=== PATIENT | female | born 1975 | race Caucasian/White ===

== ENCOUNTER 2021-08-12 08:58 | Outpatient (REF) | payer OTHER, SELFPAY ==
[2021-08-12 11:34] LABS: Alanine Aminotransferase 17 U/L (0-31); Alkaline Phosphatase 56 U/L (39-117); Anion Gap 10 (12-20); Aspartate Amino Transferase 16 U/L (5-31); Bilirubin Total 0.3 mg/dL (0.0-1.0); Blood Urea Nitrogen 18 mg/dL (9-16); Calcium 9.2 mg/dL (8.4-10.2); Carbon Dioxide 24 mmol/L (22-29); Chloride 108 mmol/L (96-108); Cholesterol 225 mg/dL; Estimated Glomerular Filt Rate > 60; Glucose Fasting 111 mg/dL (60-99); HDL Cholesterol 77 mg/dL; LDL Cholesterol Calculated 138 mg/dl; Potassium 4.2 mmol/L (3.3-5.1); Sodium 138 mmol/L (135-145); Total Protein 7.4 g/dL (6.5-8.0); Triglycerides 53 mg/dL
[2021-08-17 05:06] LABS: Vitamin D 25-OH, D2 <4 ng/mL; Vitamin D 25-OH, D3 39 ng/mL; Vitamin D 25-OH, Total 39 ng/mL (30-100)
== END 2021-08-12 08:59 | disposition home or self-care (01) ==
LOC: HO.HMGCLDS 08:58
PROVIDERS: PCP Internal Medicine; Visit Provider Internal Medicine
DX: Z00.00 Encounter for general adult medical examination without abnormal findings (principal); E55.9 Vitamin D deficiency, unspecified
CPT/HCPCS: 36415; 80053; 80061; 82306

== ENCOUNTER 2021-09-14 14:00 | Outpatient (RCR) | payer OTHER, SELFPAY ==
[2021-09-12 13:49] VITALS: BP 124/82; PULSE 84; O2SAT 94
--- NOTE | 2021-09-12 15:56 | MHC.PT.EP ---
[facility] [place] Office [place] Office [place] Office [address] Shannen Fitzpatrick [address] [phone] F: [phone] F: [phone] F: [phone] F: [phone] Physical Therapy Plan of Care Date of Evaluation: Date of Surgery: Diagnosis: This is a 45 yo female presenting to skilled PT with a script for dizziness and giddiness. Assessment: This is a 45 yo female presenting to skilled PT with a script for dizziness and giddiness. Patient has a history of dizziness starting last year when she had ear fullness and symptoms. These resolved on their own. Recently she presented to her PCP again with dizziness that is not resolving (started about 3 months ago). Symptoms increase when sitting up/laying down, doing yoga with certain head positions and occasionally looking up or down. Symptoms are described as head spinning and last no more than a few seconds. Examination shows normal oculomotor tests, (-) VBI B, and normal cervical AROM. She was (+) for BPPV with yina-hallpike and R marion maneuver. On the second attempt at tx her nystagmus appeared horz but when assessed she was negative for B. I looked at her L hallpike which was negative. When I returned to the R to begin assessment patient became sick and we held treatment until the next session as patient was too nauseous. Patient's assessment of balance was WNL with some mild symptoms that did not cause LOB or dizziness. S/S consistent with R PC BPPV and would benefit from PT 2x/wk for 4 wks to address impairments, implement HEP and optimize functional mobility. Frequency and Duration: The patient will be seen 2x/wk for 4wks Short Term Goals: Longterm Goals: I in HEP No nystagmus or symptoms in any testing positions No LOB noted and normal scores on balance tests Return to yoga in full without symptoms Treatment Plan: Modalities to reduce pain, spasms and effusion. Manual therapy to restore motion and function. Therapeutic exercise to improve strength and flexibility. Neuromuscular re-education for posture and balance. Therapeutic activities to return to functional activities of daily living. Electronically signed by: Court Malone PT Please sign and return to therapist. Thank you for your referral.
--- NOTE | 2021-10-13 13:02 | MHC.PT.DC ---
[facility] [place] Office [place] Office [place] Office [address] Shannen Fitzpatrick [address] [phone] F: [phone] F: [phone] F: [phone] F: [phone] Physical Therapy Discharge Report Diagnosis: This is a 45 yo female presenting to skilled PT with a script for dizziness and giddiness. Date of Surgery: Date of Evaluation: 09/12/21 Date of Discharge: 10/13/21 Treatments to Date: 2 Cancellations to Date: 0 No Shows to Date: 0 Discharge Status: Achieved Goals Improved Function Independent with HEP Discharge Summary: 09/14: Patient was negative for symptoms and nystagmus in all testing positions. She demos good balance without issues and good scores. I educated her once more on anatomy, symptoms and symptom management as well as placing her on a 30 day hold at this time. Educated her to call the office if anything changes from today. DC'd after 30 days Electronically signed by: Court Malone, PT Please sign and return to therapist. Thank you for your referral.
== END 2021-10-13 13:02 | disposition home or self-care (01) ==
LOC: HO.PTCHIC 14:00
PROVIDERS: PCP Internal Medicine; Visit Provider Nurse Practitioner Family
DX: R42 Dizziness and giddiness (principal)
CPT/HCPCS: 95992; 97161

== ENCOUNTER 2022-07-30 08:24 | Outpatient (REF) | payer OTHER, SELFPAY ==
[2022-07-30 11:32] LABS: Alanine Aminotransferase 12 U/L (0-31); Albumin Level 3.7 g/dL (3.5-5.0); Alkaline Phosphatase 58 U/L (39-117); Anion Gap 12 (12-20); Aspartate Amino Transferase 15 U/L (5-31); Bilirubin Total 0.3 mg/dL (0.0-1.0); Blood Urea Nitrogen 19 mg/dL (9-16); Calcium 8.8 mg/dL (8.4-10.2); Carbon Dioxide 23 mmol/L (22-29); Chloride 108 mmol/L (96-108); Cholesterol 193 mg/dL; Estimated Glomerular Filt Rate > 60; Glucose Fasting 91 mg/dL (60-99); HDL Cholesterol 58 mg/dL; LDL Cholesterol Calculated 118 mg/dl; Potassium 4.2 mmol/L (3.3-5.1); Sodium 139 mmol/L (135-145); Total Protein 7.2 g/dL (6.5-8.0); Triglycerides 87 mg/dL
== END 2022-07-30 08:25 | disposition home or self-care (01) ==
LOC: HO.HMGCLDS 08:24
PROVIDERS: PCP Internal Medicine; Visit Provider Internal Medicine
DX: Z00.00 Encounter for general adult medical examination without abnormal findings (principal); E78.5 Hyperlipidemia, unspecified
CPT/HCPCS: 36415; 80053; 80061

== ENCOUNTER 2023-05-20 15:38 | Outpatient (AMB) | payer OTHER, SELFPAY ==
[2023-05-20 15:48] VITALS: BP 130/86; PULSE 72; BMI 25.6
--- NOTE | 2023-05-20 15:48 | A.OFFPC_ITS ---
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 Last Pap smear and mammogram were 2022 as per patient and they were normal. Has never had a colonoscopy and choose to do Cologuard. No chest pain or shortness of breath. [facility] Medical History Physical exam Surgical History H/O left breast biopsy Family History Mother No problems noted. Father Hypertension Social History Housing: House Alcohol intake: current Alcohol intake frequency: holidays/special occasions only Alcohol type: wine and other Patient Tobacco Use Status: Never used Tobacco e-Cigarette/Vaping Use: Never Used Second Hand Smoke Exposure: No service: No Current occupational status: employed Current occupational exposures/hazards: No Cognitive needs: No Hearing needs: No Vision needs: No Questionnaire PHQ-9 Over the last 2 weeks, how often have you been bothered by any of the following problems? 1. Little interest or pleasure in doing things: not at all 2. Feeling down, depressed, or hopeless: not at all 3. Trouble falling or staying asleep, or sleeping too much: not at all 4. Feeling tired or having little energy: not at all 5. Poor appetite or overeating: not at all 6. Feeling bad about yourself - or that you are a failure or have let yourself or your family down: not at all 7. Trouble concentrating on things, such as reading the newspaper or watching television: not at all 8. Moving or speaking so slowly that other people could have noticed. Or the opposite - being so fidgety or restless that you have been moving around a lot more than usual: not at all 9. Thoughts that you would be better off or of hurting yourself in some way: not at all Total score: 0 Depression Screening Interpretation: Negative Depression Screening Done: Yes 81810 - PHQ-9 Billing: Yes Source: Developed by Drs. Ruddy Barr, Stacie Duron, Devonte Partida and colleagues, with an educational lyly from [employer]. Thrive Questionnaire Date Thrive assessed: 05/20/23 I am a: Patient What is your living situation today?: I have a steady place to live Within the past 12 months, did the food you bought not last and you didn't have the money to get more?: Never true Within the past 12 months, did you worry whether your food would run out before you got money to buy more?: Never true Do you have trouble paying for medicines?: No Do you have trouble getting transportation to medical appointments?: No Do you have trouble paying your heating and electricity bill?: No Do you have trouble taking care of your child, family member or friend?: No Do you have trouble with day-to-day activities such as bathing, preparing meals, shopping, managing finances, etc.?: No Are you currently unemployed and looking for a job?: No Are you interested in more education?: No Please select the resources that you would like help with: None Currently or been in a relationship where the following occur: no concerns reported AUDIT C Alcohol Use Questionnaire (AUDIT-C) 1. How often do you have a drink containing alcohol?: Monthly or less 2. How many drinks containing alcohol do you have on a typical day when you are drinking?: 1 or 2 3. How often do you have six or more drinks on one occasion?: Never Total Score: 1 Score Reviewed/Action Taken: No CARMELITA-7 AMB Questionnaire CARMELITA-7 Date CARMELITA - 7 assessed: 05/20/23 Feeling nervous, anxious, or on edge: 0 = Not at all Not being able to stop or control worryin = Not at all Worrying too much about different things: 0 = Not at all Trouble relaxin = Not at all Being so restless that it is hard to sit still: 0 = Not at all Becoming easily annoyed or irritable: 0 = Not at all Feeling afraid as if something awful might happen: 0 = Not at all Total CARMELITA-7 score (0-4 normal; 5-9 mild; 10-14 moderate; 15-21 severe): 0 Source: Developed by Drs. Ruddy Barr, Stacie Duron, Devonte Partida and colleagues, with an educational lyly from [employer]. CARMELITA-7 Assessment Billing CARMELITA-7 Assessment Tool: CARMELITA-7 Assessment 52711 Review of Systems Const All systems reviewed & are unremarkable except as noted in HPI and below Eyes Reports no additional complaints, Denies change in vision and Denies other visual disturbances Card Denies chest pain at rest, Denies chest pain with activity, Denies edema, Denies irregular heart rhythm, Denies claudication, Denies dyspnea, Denies dyspnea on exertion, Denies orthopnea, Denies paroxysmal nocturnal dyspnea and Denies slow heart rate Resp Denies cough, Denies dyspnea and Denies dyspnea on exertion GI Denies abdominal pain, Denies change in bowel habits, Denies excessive flatus, Denies nausea and Denies vomiting Denies urinary incontinence, Denies urinary hesitancy and Denies urinary urgency Musc Denies abnormal gait, Denies atrophy, Denies deformity and Denies limited range of motion Skin/Breast Denies bleeding lesions, Denies changing lesions and Denies rash Neuro Denies abnormal gait, Denies behavioral changes, Denies confusion and Denies lack of coordination Psych Denies behavioral changes and Denies confusion Physical exam (Primary Care) Vital Signs: Last Vital Signs Pulse 72 05/20/23 15:48 BP 130/86 05/20/23 15:48 BMI result Body Mass Index 25.6 Tobacco/Smoking Status: Tobacco use Status Tobacco use date assessed 08/29/21 05/20/23 15:51 Patient Tobacco Use Status Never used Tobacco 05/20/23 15:51 e-Cigarette/Vaping Use Never Used 05/20/23 15:51 PHQ-9: PHQ-9 Score PHQ-9: Total score 0 05/20/23 16:06 Depression Screening Interpretation: Negative Thrive Assessment: Date of Thrive Assessment Date Thrive assessed 05/20/23 05/20/23 15:51 Currently or been in a relationship where the following occur: no concerns reported Const General: No confusion Orientation/consciousness: patient oriented x3 and No confusion HENMT Head: Yes normal to inspection, Yes normocephalic and Yes atraumatic Ears: external ears normal Eyes General: appearance normal, both eyes and all related structures Eyelids: Yes eyelids normal Conjunctivae: conjunctivae normal Neck Neck: Yes normal visual inspection and Yes supple Resp Effort & Inspection: normal respiratory effort Auscultation: clear to auscultation bilaterally Cardio Jugular venous distension: no JVD Rate: regular rate Rhythm: regular rhythm Heart sounds: S1 normal heart sound present and S2 normal heart sound present GI Inspection: Yes normal to inspection Palpation (GI): Soft to palpation and nontender Auscultation: normal bowel sounds Skin General skin exam: no rashes or lesions noted Neuro General: patient oriented x3, no focal motor deficits and No confusion Extrem General: Yes full ROM Psych Appearance: grossly normal Office Procedures Flu Questionnaire Does the patient have a severe egg allergy?: No Does the patient have severe life threatening allergies?: No Does the patient have a fever or illness today?: No Has the patient ever had Guillain-[place]wood Syndrome?: No Has the patient ever had any past reaction to a flu shot?: No Immunizations flu vacc [id number] 6mos up(PF) 60 mcg(15 mcgx4)/0.5 mL IM syringe Performing Provider: Marimar Middleton MD [facility] Administered by: LAISHA Lorenz on 05/20/23 15:58 Dose Route Admin Location Dispensed Lot Number Expiration Date NDC Roll Hand 0.5 mL IM Left Deltoid 0.5 mL [id number] 12/08/23 72481-025-57 [employer] VIS Given Date VIS Provided VIS Publication Date 05/20/23 Single Vaccine 21 Eligibility Eligibility Date Funding Source Not [facility] Eligible 05/20/23 Private Assessment and Plan Assessment & Plan (1) Physical exam: Code(s): Z00.00 - Encounter for general adult medical examination without abnormal findings Plan: Repeat in a year. Orders: Orders Influenza [id number] Immunization Today Z23 - Encounter for immunization Referrals Cologuard Test Z12.11 - Encounter for screening for malignant neoplasm of colon, Z12.12 - Encounter for screening for malignant neoplasm of rectum Coding Level of Care Code Est Pt Prev Care 40-64y(96624) Diagnoses Physical exam Z00.00 Additional Codes CARMELITA-7 Assessment Billing - CARMELITA-7 Assessment Tool: CARMELITA-7 Assessment 43473 ([id number]) Time Spent (min) 31
== END 2023-05-20 16:10 | disposition home or self-care (01) ==
PROVIDERS: Visit Provider Internal Medicine
DX: Z00.00 Encounter for general adult medical examination without abnormal findings (principal); Z23 Encounter for immunization
CPT/HCPCS: 90471; 90686; 99396

== ENCOUNTER 2024-05-21 16:25 | Outpatient (AMB) | payer BC, SELFPAY ==
[2024-05-21 16:28] VITALS: BP 126/80; BMI 26.4
--- NOTE | 2024-05-21 16:28 | MHC.PC.OV ---
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 by: Self / Same As Patient Allergies No Known Allergies Allergy (Verified 05/21/24 16:35) Medication List - Last Reconciled 05/21/24 by Marimar Middleton MD norethindrone-e.estradiol-iron 1.5 mg-30 mcg (21)/75 mg (7) ( FE (28)) 1 tab PO DAILY Tobacco use date assessed: 05/21/24 Dental Screening Dental Screen Date: 05/21/24 Did you have a dental visit in the last 12 months?: Yes Did you have a dental problem in the last 6 months where you did not have access to dental care?: No Was dental information given to patient?: Patient has dentist HPI HPI Comments History of Present Illness Details The patient is a 48-year-old female presenting for an annual physical examination. She has a history of a breast biopsy conducted in June 2021, which yielded a negative result for malignancy. The patient underwent a Pap smear with HPV testing in 2021, which returned negative, allowing for a future Pap smear in five years. Her previous mammogram was performed in May of the previous year, and she plans to have another mammogram tomorrow. Additionally, she completed a Cologuard test in June 2023, which was negative, with the next test due in 2026. No new medical conditions or pertinent illnesses have been reported since the last visit. The patient has adhered to her health routine without significant changes, although a minor weight increase was noted from 149 to 154 pounds, attributed to holiday influences. No symptoms such as chest pain, shortness of breath, gastrointestinal disturbances like nausea or vomiting, or fever were reported. The patient denies smoking history and only consumes alcohol occasionally, with typically one drink per session. She passed both PHQ9 and GAD7 screenings, indicating no depression or anxiety disorders, respectively. Blood work done in 2022 showed normal kidney function, blood sugar, liver function, and cholesterol levels. Her family medical history reveals her father has hypertension, whereas her mother does not have major health concerns. There is no known family history of cancer. - Pap smear with HPV test negative in 2021; next due in 2026. - Mammogram scheduled for tomorrow; last mammogram in May. - Cologuard test was negative in June 2023; next due in 2026. - Blood work in 2022 normal for kidney function, glucose levels, liver function, and cholesterol. - Influenza vaccination planned for today. - Tdap vaccine due in 2024. - Counseling on weight management after recent holidays. - Advised to consider regular exercise and dietary moderation. PFSH Medical History Physical exam Surgical History H/O left breast biopsy Family History Mother No problems noted. Father Hypertension Social History (Updated 05/21/24 @ 16:40 by Marimar Middleton MD) Housing: House Alcohol intake: current Alcohol intake frequency: a few times a week Alcohol type: wine and hard liquor Patient Tobacco Use Status: Never used Tobacco e-Cigarette/Vaping Use: Never Used Second Hand Smoke Exposure: No service: No Current occupational status: employed Current occupational exposures/hazards: No Cognitive needs: No Hearing needs: No Vision needs: No Questionnaire PHQ-9 Over the last 2 weeks, how often have you been bothered by any of the following problems? 1. Little interest or pleasure in doing things: not at all 2. Feeling down, depressed, or hopeless: not at all 3. Trouble falling or staying asleep, or sleeping too much: not at all 4. Feeling tired or having little energy: several days 5. Poor appetite or overeating: not at all 6. Feeling bad about yourself - or that you are a failure or have let yourself or your family down: not at all 7. Trouble concentrating on things, such as reading the newspaper or watching television: not at all 8. Moving or speaking so slowly that other people could have noticed. Or the opposite - being so fidgety or restless that you have been moving around a lot more than usual: not at all 9. Thoughts that you would be better off or of hurting yourself in some way: not at all Total score: 1 Depression Screening Interpretation: Negative Depression Screening Done: Yes 15184 - PHQ-9 Billing: Yes Source: Developed by Drs. Ruddy Barr, Stacie Duron, Devonte Partida and colleagues, with an educational lyly from [employer]. Thrive Questionnaire Date Thrive assessed: 05/21/24 I am a: Patient What is your living situation today?: I have a steady place to live Within the past 12 months, did the food you bought not last and you didn't have the money to get more?: Never true Within the past 12 months, did you worry whether your food would run out before you got money to buy more?: Never true Do you have trouble paying for medicines?: No Do you have trouble getting transportation to medical appointments?: No Do you have trouble paying your heating and electricity bill?: No Do you have trouble taking care of your child, family member or friend?: No Do you have trouble with day-to-day activities such as bathing, preparing meals, shopping, managing finances, etc.?: No Are you currently unemployed and looking for a job?: No Are you interested in more education?: No Please select the resources that you would like help with: None Currently or been in a relationship where the following occur: No concerns reported THRIVE Score: 0 AUDIT C Alcohol Use Questionnaire (AUDIT-C) 1. How often do you have a drink containing alcohol?: 2-3 times a week 2. How many drinks containing alcohol do you have on a typical day when you are drinking?: 1 or 2 3. How often do you have six or more drinks on one occasion?: Never Total Score: 3 CARMELITA-7 AMB Questionnaire CARMELITA-7 Date CARMELITA - 7 assessed: 05/21/24 Feeling nervous, anxious, or on edge: 0 = Not at all Not being able to stop or control worryin = Not at all Worrying too much about different things: 0 = Not at all Trouble relaxin = Not at all Being so restless that it is hard to sit still: 0 = Not at all Becoming easily annoyed or irritable: 0 = Not at all Feeling afraid as if something awful might happen: 0 = Not at all Total CARMELITA-7 score (0-4 normal; 5-9 mild; 10-14 moderate; 15-21 severe): 0 Source: Developed by Drs. Ruddy Barr, Stacie Duron, Devonte Partida and colleagues, with an educational lyly from [employer]. CARMELITA-7 Assessment Billing CARMELITA-7 Assessment Tool: CARMELITA-7 Assessment 73785 Review of Systems Const All systems reviewed & are unremarkable except as noted in HPI and below Card Denies chest pain at rest, Denies chest pain with activity, Denies edema, Denies irregular heart rhythm, Denies claudication, Denies dyspnea, Denies dyspnea on exertion, Denies orthopnea, Denies paroxysmal nocturnal dyspnea and Denies slow heart rate Resp Denies cough, Denies dyspnea and Denies dyspnea on exertion GI Denies abdominal pain, Denies change in bowel habits, Denies excessive flatus, Denies nausea and Denies vomiting Musc Denies atrophy, Denies deformity and Denies limited range of motion Physical exam (Primary Care) Vital Signs: Last Vital Signs BP 126/80 05/21/24 16:28 BMI result Body Mass Index 26.4 Tobacco/Smoking Status: Tobacco use Status Tobacco use date assessed 05/21/24 05/21/24 16:34 Patient Tobacco Use Status Never used Tobacco 05/21/24 16:40 e-Cigarette/Vaping Use Never Used 05/21/24 16:40 PHQ-9: PHQ-9 Score PHQ-9: Total score 1 05/21/24 16:49 Depression Screening Interpretation: Negative Thrive Assessment: Date of Thrive Assessment Date Thrive assessed 05/21/24 05/21/24 16:34 Currently or been in a relationship where the following occur: No concerns reported [facility] Head: Yes normal to inspection, Yes normocephalic and Yes atraumatic Ears: external ears normal Eyes General: appearance normal, both eyes and all related structures Eyelids: Yes eyelids normal Conjunctivae: conjunctivae normal Neck Neck: Yes normal visual inspection and Yes supple Resp Effort & Inspection: normal respiratory effort Auscultation: clear to auscultation bilaterally Cardio Jugular venous distension: no JVD Rate: regular rate Rhythm: regular rhythm Heart sounds: S1 normal heart sound present and S2 normal heart sound present GI Inspection: Yes normal to inspection Palpation (GI): Soft to palpation and nontender Auscultation: normal bowel sounds Skin General skin exam: no rashes or lesions noted Neuro General: no focal motor deficits Extrem General: Yes full ROM Psych Appearance: grossly normal Office Procedures Flu Questionnaire Does the patient have a severe egg allergy?: No Does the patient have severe life threatening allergies?: No Does the patient have a fever or illness today?: No Has the patient ever had Guillain-[place] Syndrome?: No Has the patient ever had any past reaction to a flu shot?: No Immunizations Fluarix Triv 8088-0355 (PF) 45 mcg (15 mcg x 3)/0.5 mL IM syringe Performing Provider: Marimar Middleton MD [facility] Administered by: RODRIGUE Chavez on 05/21/24 16:48 Dose Route Admin Location Dispensed Lot Number Expiration Date NDC Supervisor Case Loading 0.5 mL IM Right Deltoid 0.5 mL [id number] 12/07/24 [id number] [employer] VIS Given Date VIS Provided VIS Publication Date 05/21/24 Single Vaccine 21 Eligibility Eligibility Date Funding Source Not [facility] Eligible 05/21/24 Private Coding Level of Care Code Est Pt Prev Care 40-64y(70887) Diagnoses Physical exam Z00.00 Additional Codes CARMELITA-7 Assessment Billing - CARMELITA-7 Assessment Tool: CARMELITA-7 Assessment 60499 ([id number]) PHQ-9 - 79842 - PHQ-9 Billing: Yes ([id number]) Time Spent (min) 30 Assessment & Plan Assessment & Plan (1) Physical exam: Code(s): Z00.00 - Encounter for general adult medical examination without abnormal findings Category: Medical Plan 1. - Maintain current medication, Jun[place]: - Encourage regular physical activity to assist with weight management. Patient was informed and verbally consented to the use of an ambient scribe for clinic note documentation during this visit. I discussed with the patient her general health status, noting no significant changes since her last visit. Health screenings, including Pap smear and Cologuard tests, were negative, and she has scheduled her routine mammogram. We addressed her slight weight gain and strategized reducing it by implementing moderate dietary and exercise changes. She was reassured regarding her negative breast biopsy outcome. I advised continuing regular health screening and maintaining a healthy lifestyle. She opted to receive her influenza vaccine today, and we discussed the timeline for her Tdap booster in 2024. I acknowledged the importance of continuing with current contraception management. The patient had no questions or additional concerns and agreed to the plan. Orders: Orders Influenza [id number] Immunization 05/21/24 Z23 - Encounter for immunization Patient Instructions: - Attend scheduled mammogram appointment tomorrow. - Receive influenza vaccination today. - Start a regular exercise routine and balanced diet to manage weight. - Continue taking prescribed medications as directed. - Schedule a follow-up appointment for next year's physical exam. - Contact our office if any new symptoms or health concerns arise.
== END 2024-05-21 16:48 | disposition home or self-care (01) ==
PROVIDERS: PCP Internal Medicine; Visit Provider Internal Medicine
DX: Z00.00 Encounter for general adult medical examination without abnormal findings (principal)

== ENCOUNTER → 2024-05-21 16:25 | Outpatient (BNVA) | payer BC, SELFPAY | PROVIDERS: PCP Internal Medicine; Visit Provider Internal Medicine | DX: Z00.00 Encounter for general adult medical examination without abnormal findings (principal); Z23 Encounter for immunization | CPT/HCPCS: 90471; 90656; 96127 ==

== ENCOUNTER 2025-05-31 14:59 | Outpatient (AMB) | payer OTHER, SELFPAY ==
--- NOTE | 2025-05-31 15:15 | MHC.PC.OV ---
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 Accompanied by: Self / Same As Patient Allergies No Known Allergies Allergy (Verified 05/31/25 15:40) Medication List - Last Reconciled 05/31/25 by Marimar Middleton MD norethindrone-e.estradiol-iron 1.5 mg-30 mcg (21)/75 mg (7) ( FE ()) 1 tab PO DAILY Tobacco use date assessed: 05/31/25 Dental Screening Dental Screen Date: 05/31/25 Did you have a dental visit in the last 12 months?: Yes Did you have a dental problem in the last 6 months where you did not have access to dental care?: No Was dental information given to patient?: Patient has dentist HPI HPI Comments History of Present Illness Details This is a 49-year-old female that comes for her physical exam. Last Tdap vaccine was 2014 and it will be given today. Flu vaccine also given today. Cologuard done 2023 and next Cologuard should be 2026. Mammogram done this year. Pap smear done 2021. Denies any acute complaint. [facility] Medical History Physical exam Surgical History H/O left breast biopsy Family History Mother No problems noted. Father Hypertension Social History Housing: House Alcohol intake: current Alcohol intake frequency: a few times a week Alcohol type: wine and hard liquor Patient Tobacco Use Status: Never used Tobacco e-Cigarette/Vaping Use: Never Used Second Hand Smoke Exposure: No service: No Current occupational status: employed Current occupational exposures/hazards: No Cognitive needs: No Hearing needs: No Vision needs: No Questionnaire PHQ-9 Over the last 2 weeks, how often have you been bothered by any of the following problems? 1. Little interest or pleasure in doing things: not at all 2. Feeling down, depressed, or hopeless: not at all 3. Trouble falling or staying asleep, or sleeping too much: not at all 4. Feeling tired or having little energy: not at all 5. Poor appetite or overeating: not at all 6. Feeling bad about yourself - or that you are a failure or have let yourself or your family down: not at all 7. Trouble concentrating on things, such as reading the newspaper or watching television: not at all 8. Moving or speaking so slowly that other people could have noticed. Or the opposite - being so fidgety or restless that you have been moving around a lot more than usual: not at all 9. Thoughts that you would be better off or of hurting yourself in some way: not at all Total score: 0 Depression Screening Interpretation: Negative Depression Screening Done: Yes 21176 - PHQ-9 Billing: Yes Source: Developed by Drs. Ruddy Barr, Stacie Duron, Devonte Partida and colleagues, with an educational lyly from [employer]. Thrive Questionnaire Date Thrive assessed: 05/31/25 I am a: Patient What is your living situation today?: I have a steady place to live Within the past 12 months, did the food you bought not last and you didn't have the money to get more?: Never true Within the past 12 months, did you worry whether your food would run out before you got money to buy more?: Never true Do you have trouble paying for medicines?: No Do you have trouble getting transportation to medical appointments?: No Do you have trouble paying your heating and electricity bill?: No Do you have trouble taking care of your child, family member or friend?: No Do you have trouble with day-to-day activities such as bathing, preparing meals, shopping, managing finances, etc.?: No Are you currently unemployed and looking for a job?: No Are you interested in more education?: No Please select the resources that you would like help with: None Currently or been in a relationship where the following occur: No concerns reported THRIVE Score: 0 AUDIT C Alcohol Use Questionnaire (AUDIT-C) 1. How often do you have a drink containing alcohol?: 2-4 times a month 2. How many drinks containing alcohol do you have on a typical day when you are drinking?: 1 or 2 3. How often do you have six or more drinks on one occasion?: Never Total Score: 2 Score Reviewed/Action Taken: No CARMELITA-7 AMB Questionnaire CARMEILTA-7 Date CARMELITA - 7 assessed: 05/31/25 Feeling nervous, anxious, or on edge: 0 = Not at all Not being able to stop or control worryin = Not at all Worrying too much about different things: 0 = Not at all Trouble relaxin = Not at all Being so restless that it is hard to sit still: 0 = Not at all Becoming easily annoyed or irritable: 0 = Not at all Feeling afraid as if something awful might happen: 0 = Not at all Total CARMELITA-7 score (0-4 normal; 5-9 mild; 10-14 moderate; 15-21 severe): 0 Source: Developed by Drs. Ruddy Barr, Stacie Duron, Devonte Partida and colleagues, with an educational lyly from [employer]. CARMELITA-7 Assessment Billing CARMELITA-7 Assessment Tool: CARMELITA-7 Assessment 57261 Review of Systems Const All systems reviewed & are unremarkable except as noted in HPI and below Card Denies chest pain at rest, Denies chest pain with activity, Denies edema, Denies irregular heart rhythm, Denies claudication, Denies dyspnea, Denies dyspnea on exertion, Denies orthopnea, Denies paroxysmal nocturnal dyspnea and Denies slow heart rate Resp Denies cough, Denies dyspnea and Denies dyspnea on exertion GI Denies abdominal pain, Denies change in bowel habits, Denies excessive flatus, Denies nausea and Denies vomiting Physical exam (Primary Care) Vital Signs: Last Vital Signs Pulse 73 05/31/25 15:16 Resp 18 05/31/25 15:16 BP 128/78 05/31/25 15:16 Pulse Ox 98 05/31/25 15:16 Oxygen Delivery Method Room Air 05/31/25 15:16 BMI result Body Mass Index 28.0 Tobacco/Smoking Status: Tobacco use Status Tobacco use date assessed 05/31/25 05/31/25 15:23 Patient Tobacco Use Status Never used Tobacco 05/31/25 15:23 e-Cigarette/Vaping Use Never Used 05/31/25 15:23 PHQ-9: PHQ-9 Score PHQ-9: Total score 0 05/31/25 15:43 Depression Screening Interpretation: Negative Thrive Assessment: Date of Thrive Assessment Date Thrive assessed 05/31/25 05/31/25 15:23 Currently or been in a relationship where the following occur: No concerns reported HENTN Head: Yes normal to inspection, Yes normocephalic and Yes atraumatic Ears: external ears normal Eyes General: appearance normal, both eyes and all related structures Eyelids: Yes eyelids normal Conjunctivae: conjunctivae normal Neck Neck: Yes normal visual inspection and Yes supple Resp Effort & Inspection: normal respiratory effort Auscultation: clear to auscultation bilaterally Cardio Jugular venous distension: no JVD Rate: regular rate Rhythm: regular rhythm Heart sounds: S1 normal heart sound present and S2 normal heart sound present GI Inspection: Yes normal to inspection Palpation (GI): Soft to palpation and nontender Auscultation: normal bowel sounds Skin General skin exam: no rashes or lesions noted Neuro General: no focal motor deficits Extrem General: Yes full ROM Psych Appearance: grossly normal Office Procedures Flu Questionnaire Does the patient have a severe egg allergy?: No Does the patient have severe life threatening allergies?: No Does the patient have a fever or illness today?: No Has the patient ever had Guillain-[place] Syndrome?: No Has the patient ever had any past reaction to a flu shot?: No Immunizations Fluarix [id number] (PF) 45 mcg (15 mcg x 3)/0.5 mL IM syringe Performing Provider: Marimar Middleton MD Performing Location[facility] [place] [facility] Administered by: Joann Galarza RN on 05/31/25 16:01 Dose Route Admin Location Dispensed Lot Number Expiration Date [facility] 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 0.5 mL IM Left Deltoid 0.5 mL [id number] 12/07/25 30454-879-51 CIQUAL VIS Given Date VIS Provided VIS Publication Date 05/31/25 Single Vaccine 24 Eligibility Eligibility Date Funding Source Not [facility] Eligible 05/31/25 Private Boostrix Tdap 2.5 Lf unit-8 mcg-5 Lf/0.5 mL intramuscular syringe Performing Provider: Marimar Middleton MD Performing Location: [facility] [place] [facility] Administered by: Joann Galarza RN on 05/31/25 16:02 Dose Route Admin Location Dispensed Lot Number Expiration Date 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 0.5 mL IM Right Deltoid 0.5 mL [id number] 11/20/27 [id number] [employer]. Total Dispensed Waste 0.5 mL 0 % VIS Given Date VIS Provided VIS Publication Date 05/31/25 Single Vaccine 21 Eligibility Eligibility Date Funding Source Not [facility] Eligible 05/31/25 Private Coding Level of Care Code Est Pt Prev Care 40-64y(60769) Diagnoses Physical exam Z00.00 Additional Codes PHQ-9 - 69913 - PHQ-9 Billing: Yes ([id number]) CARMELITA-7 Assessment Billing - CARMELITA-7 Assessment Tool: CARMELITA-7 Assessment 00291 ([id number]) Time Spent (min) 30 Assessment & Plan Assessment & Plan (1) Physical exam: Code(s): Z00.00 - Encounter for general adult medical examination without abnormal findings Category: Medical Plan Repeat physical exam in a year. Give Tdap and flu vaccine today. Cologuard done 2026. Continue yearly mammogram. Orders: Orders Lipid Panel Today E78.5 - Hyperlipidemia, unspecified, Z00.00 - Encounter for general adult medical examination without abnormal findings TDaP Immunization Today Z23 - Encounter for immunization Influenza [id number] Immunization Today Z23 - Encounter for immunization Comprehensive [place]. Panel Fast Today Z00.00 - Encounter for general adult medical examination without abnormal findings
[2025-05-31 15:16] VITALS: BP 128/78; PULSE 73; RESP 18; O2SAT 98; BMI 28.0
--- NOTE | 2025-05-31 16:02 | AM.OFFVISNUR ---
Vital Signs 05/31/25 15:16 Height 5 ft 4 in Weight 163 lb BMI 28.0 BP 128/78 Blood Pressure Location Lt brachial Position Sitting Respiration 18 Pulse 73 Pulse Source Pulse Oximeter Temp Source Temporal Artery Scan Pulse Oximetry (%) 98 Oxygen Delivery Method Room Air Intake Visit Reasons: pe Allergies No Known Allergies Allergy (Verified 05/31/25 15:40) Medication List - Last Reconciled 05/31/25 by Marimar Middleton MD norethindrone-e.estradiol-iron 1.5 mg-30 mcg (21)/75 mg (7) ( FE ()) 1 tab PO DAILY Office Procedures Flu Questionnaire Does the patient have a severe egg allergy?: No Does the patient have severe life threatening allergies?: No Does the patient have a fever or illness today?: No Has the patient ever had Guillain-[place] Syndrome?: No Has the patient ever had any past reaction to a flu shot?: No Immunizations Fluarix [id number] (PF) 45 mcg (15 mcg x 3)/0.5 mL IM syringe Performing Provider: Marimar Middleton MD Performing Location[place] [facility] [place] [facility] Administered by: Joann Galarza RN on 05/31/25 16:01 Dose Route Admin Location Dispensed Lot Number Expiration Date 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 Tool Engine Lathe Set Up Operator 0.5 mL IM Right Deltoid 0.5 mL [id number] 11/20/27 43901-251-96 [id number] Total Dispensed Waste 0.5 mL 0 % VIS Given Date VIS Provided VIS Publication Date 05/31/25 Single Vaccine 21 Eligibility Eligibility Date Funding Source Not [facility] Eligible 05/31/25 Private Assessment & Plan Assessment & Plan Orders: Orders Lipid Panel Today E78.5 - Hyperlipidemia, unspecified, Z00.00 - Encounter for general adult medical examination without abnormal findings TDaP Immunization Today Z23 - Encounter for immunization Influenza [id number] Immunization Today Z23 - Encounter for immunization Comprehensive [place]. Panel Fast Today Z00.00 - Encounter for general adult medical examination without abnormal findings Coding
== END 2025-05-31 16:20 | disposition home or self-care (01) ==
LOC: HO.HMCH 15:00
PROVIDERS: PCP Internal Medicine; Visit Provider Internal Medicine
DX: Z23 Encounter for immunization (principal); Z00.00 Encounter for general adult medical examination without abnormal findings

== ENCOUNTER → 2025-05-31 14:59 | Outpatient (BNVA) | payer OTHER, SELFPAY | PROVIDERS: PCP Internal Medicine; Visit Provider Internal Medicine | DX: Z13.31 Encounter for screening for depression (principal); Z13.39 Encounter for screening examination for other mental health and behavioral disorders; Z23 Encounter for immunization | CPT/HCPCS: 90471; 90472; 90656; 90715; 96127 ==